=== PATIENT | female | born 1980 | race American Indian/Alaskan Native ===

== ENCOUNTER 2018-06-17 21:18 | Observation (INO) | payer BC ==
[2018-06-17] MEDS ORDERED: ZOFRAN IV ONE (21:37)
[2018-06-17] MEDS ORDERED: NACL 0.9% 1000 ML 1,000 ML IV ONE (21:37)
--- NOTE | 2018-06-17 21:39 | Emergency Department Report ---
ED Abdominal Pain HPI - General Stated Complaint: N/V/D Time Seen by Provider: 06/17/18 21:36 Source: patient, family, EMS Mode of arrival: Stretcher Limitations: No Limitations - History of Present Illness Initial Comments: Tej is a 38-year-old female that presents emergency room with nausea and vomiting and diarrhea 7 days. Patient states 5 days ago she was seen in [facility] for the same symptoms and discharged with Zofran. Patient states her diarrhea nausea vomiting are fluctuating in intensity. Patient states today they started to worsen again. Patient states she is having severe abdominal pain. Patient states the abdominal pain is generalized and nonra diating. He states the abdominal pain is 10 out of 10. Patient states that the pain is worse with vomiting and diarrhea and eating. Patient states the pain is better with rest and staying nothing by mouth. MD Complaint: abdominal pain -: Sudden Location: diffuse Radiation: none Migration to: no migration Severity: severe Severity scale (0 -10): 10 Quality: stabbing Consistency: constant Improves With: rest Worsens With: eating, vomiting, movement Associated Symptoms: nausea, vomiting, diarrhea. denies: fever, chills, constipation, dysuria, hematemesis, hematochezia, melena, hematuria, anorexia, syncope - Related Data LMP (females 10-50): unknown Home Medications Medication Instructions Recorded Confirmed Last Taken No Known Home Medications [No 06/17/18 06/17/18 Unknown Reported Home Medications] Allergies Allergy/AdvReac Type Severity Reaction Status Date / Time No Known Allergies Allergy Unverified 06/17/18 21:50 ED Review of Systems ROS: Stated complaint: N/V/D Other details as noted in HPI Constitutional: denies: chills, fever Eyes: denies: eye pain, eye discharge, vision change ENT: denies: ear pain, throat pain Respiratory: denies: cough, shortness of breath, wheezing Cardiovascular: denies: chest pain, palpitations Endocrine: no symptoms reported Gastrointestinal: abdominal pain, nausea, vomiting, diarrhea Genitourinary: denies: urgency, dysuria, discharge Musculoskeletal: denies: back pain, joint swelling, arthralgia Skin: denies: rash, lesions Neurological: denies: headache, weakness, paresthesias Psychiatric: denies: anxiety, depression Hematological/Lymphatic: denies: easy bleeding, easy bruising ED Past Medical Hx - Past Medical History Previous Medical History?: Yes Additional medical history: IBS. Allergic rhinitis - Surgical History Past Surgical History?: No - Family History Family history: hypertension, lung disease - Social History Smoking Status: Never Smoker Substance Use Type: None - Medications Home Medications: Home Medications Medication Instructions Recorded Confirmed Last Taken Type No Known Home Medications [No 06/17/18 06/17/18 Unknown History Reported Home Medications] ED Physical Exam - General Limitations: No Limitations General appearance: alert, in no apparent distress - Head Head exam: Present: atraumatic, normocephalic - Eye Eye exam: Present: normal appearance - ENT ENT exam: Present: mucous membranes dry - Neck Neck exam: Present: normal inspection - Respiratory Respiratory exam: Present: normal lung sounds bilaterally. Absent: respiratory distress - Cardiovascular Cardiovascular Exam: Present: regular rate, normal rhythm. Absent: systolic murmur, diastolic murmur, rubs, gallop - GI/Abdominal GI/Abdominal exam: Present: soft, tenderness (generalized abdominal tenderness), normal bowel sounds - Rectal Rectal exam: Present: deferred - Extremities Exam Extremities exam: Present: normal inspection - Back Exam Back exam: Present: normal inspection - Neurological Exam Neurological exam: Present: alert, oriented X3 - Psychiatric Psychiatric exam: Present: normal affect, normal mood - Skin Skin exam: Present: warm, dry, intact, normal color. Absent: rash ED Course Vital Signs 06/17/18 06/17/18 06/18/18 21:43 22:14 00:13 Temperature 98.1 F Pulse Rate 78 77 93 H Respiratory 19 15 16 Rate Blood Pressure 109/64 Blood Pressure 112/68 122/88 [Right] O2 Sat by Pulse 100 100 98 Oximetry 06/18/18 02:15 Temperature Pulse Rate 87 Respiratory 16 Rate Blood Pressure Blood Pressure 132/80 [Right] O2 Sat by Pulse 98 Oximetry - Reevaluation(s) Reevaluation #1: Patient is still complaining of pain. Patient will be given 1 mg Dilaudid and sent to CT. Discussed all results and plan of care with patient. 06/17/18 22:34 Reevaluation #2: Discussed all results and CT results with the patient. Patient will be given a by mouth challenge. Patient is still complaining of abdominal pain and nausea. 06/18/18 01:07 Patient vomited me immediately after by mouth intake with lukewarm water. We'll contact NAIL MACHINE OPERATOR for possible admission. 06/18/18 01:13 Discussed all results with patient. Discussed plan of care and admission with patient. Patient agrees with plan of care and admission. 06/18/18 01:27 - Consultations Consultation #1: NAIL MACHINE OPERATOR consultation for admission. Dr. Mckenzie Sneed has agreed to admit the patient to the NAIL MACHINE OPERATOR floor. 06/18/18 01:27 ED Medical Decision Making - Lab Data Result diagrams: 06/17/18 21:56 06/17/18 21:56 - Radiology Data Radiology results: report reviewed PROCEDURE: CT ABDOMEN PELVIS W CON TECHNIQUE: Enhanced axial images were obtained from the lower lung bases to the pelvis after the uneventful administration of IV contrast. HISTORY: Abdominal Pain COMPARISONS: None FINDINGS: Visualized lower thorax: No significant abnormality. Liver: Normal size and attenuation. Spleen: Normal size and attenuation. Gallbladder and biliary system: Normal. Pancreas: Normal. Adrenals: Normal. Kidneys: Normal. GI tract: Surgical changes to the stomach. No bowel obstruction. Lymph nodes and mesentery: Normal. Vasculature: Normal.. Bladder: Normal. Reproductive organs: Normal. Peritoneum: Mild to moderate amount of free fluid in the pelvis. Consider leak or ruptured ovarian cyst as possible etiology. Musculoskeletal structures: No significant abnormality. Other: None . IMPRESSION: 1. No acute changes to the abdomen. 2. Mild to moderate amount of free fluid in the pelvis. Consider leak or ruptured ovarian cyst as possible etiology. - Medical Decision Making is a 38-year-old female presents emergency room with complaints of abd ominal pain and nausea and vomiting 7 days. Patient abdominal pain and nausea vomiting intractable. Patient's CT done and shows a ruptured ovarian cyst. Patient was admitted to the [facility] service for further evaluation treatment. Prior to admission patient was given a by mouth challenge and patient unable to tolerate lukewarm water. Patient given multiple doses of pain medications and antiemetics. Patient's labs are unremarkable except for hypokalemia which is most likely secondary to nausea and vomiting. Patient given saline boluses in the ER. - Differential Diagnosis intractable n/v and abdominal pain. Ruptured ovarian cyst, gastroenteritis Critical Care Time: Yes Critical care attestation.: If time is entered above; I have spent that time in minutes in the direct care of this critically ill patient, excluding procedure time. Critical Care Time: 45 minutes ED Disposition Clinical Impression: Gastroenteritis, Ruptured ovarian cyst, Intractable abdominal pain Nausea & vomiting Qualifiers: Vomiting type: unspecified Vomiting Intractability: intractable Qualified Code(s): R11.2 - Nausea with vomiting, unspecified Abdominal pain Qualifiers: Abdominal location: generalized Qualified Code(s): R10.84 - Generalized abdominal pain Disposition: 09 OP ADMIT IP TO THIS HOSP Is pt being admited?: Yes Does the pt Need Aspirin: No Condition: Critical Time of Disposition: 01:27
[2018-06-17 22:00] LABS: Bilirubin,Urine NEG (Negative); Blood,Urine NEG (Negative); Color,Urine Yellow (Yellow); Protein,Urine <15 mg/dL mg/dL (Negative); Urobilinogen,Urine < 2.0 mg/dL (<2.0)
[2018-06-17 22:04] LABS: Basophils % (Auto) 0.5 % (0.0-1.8); Eosinophils # (Auto) 0.1 K/mm3 (0.0-0.4); Eosinophils % (Auto) 1.4 % (0.0-4.3); Hematocrit 32.5 % (30.3-42.9); Hemoglobin 10.8 gm/dl (10.1-14.3); Lymphocytes # (Auto) 2.4 K/mm3 (1.2-5.4); Lymphocytes % (Auto) 41.1 % (13.4-35.0); Mean Corpuscular HGB Conc 33 % (30-34); Mean Corpuscular Volume 88 fl (79-97); Monocytes # (Auto) 0.3 K/mm3 (0.0-0.8); Monocytes % (Auto) 5.3 % (0.0-7.3); Platelet Count 239 K/mm3 (140-440); Red Blood Count 3.68 M/mm3 (3.65-5.03); Red Cell Distribution Width 12.4 % (13.2-15.2)
[2018-06-17 22:18] LABS: Alanine Aminotransferase 8 units/L (7-56); Albumin 3.7 g/dL (3.9-5); BUN/Creatinine Ratio 10; Blood Urea Nitrogen 7 mg/dL (7-17); Calcium 8.7 mg/dL (8.4-10.2); Hemolysis Index 12
[2018-06-17 22:21] LABS: Bilirubin,Direct < 0.2 mg/dL (0-0.2)
[2018-06-17] MEDS ORDERED: DILAUDID IV ONE (22:34)
[2018-06-17] MEDS ORDERED: DILAUDID ONE (22:36)
[2018-06-18] MEDS ORDERED: DILAUDID IV ONE (00:20)
[2018-06-18] MEDS ORDERED: ZOFRAN IV ONE (00:20)
--- NOTE | 2018-06-18 00:40 | Cat Scan Report ---
PROCEDURE: CT ABDOMEN PELVIS W CON TECHNIQUE: Enhanced axial images were obtained from the lower lung bases to the pelvis after the une ventful administration of IV contrast. HISTORY: Abdominal Pain COMPARISONS: None FINDINGS: Visualized lower thorax: No significant abnormality. Liver: Normal size and attenuation. Spleen: Normal size and attenuation. Gallbladder and biliary system: Normal. Pancreas: Normal. Adrenals: Normal. Kidneys: Normal. GI tract: Surgical changes to the stomach. No bowel obstruction. Lymph nodes and mesentery: Normal. Vasculature: Normal.. Bladder: Normal. Reproductive organs: Normal. Peritoneum: Mild to moderate amount of free fluid in the pelvis. Consider leak or ruptured ovarian cy st as possible etiology. Musculoskeletal structures: No significant abnormality. Other: None . IMPRESSION: 1. No acute changes to the abdomen. 2. Mild to moderate amount of free fluid in the pelvis. Consider leak or ruptured ovarian cyst as pos sible etiology. This document is electronically signed by Mariposa Moss MD., June 18 2018 12:38:52 AM ET
[2018-06-18] MEDS ORDERED: TORADOL IV ONE (01:14)
[2018-06-18] MEDS ORDERED: NARCAN 0.4 MG/1 ML IV PRN (01:30)
[2018-06-18] MEDS ORDERED: ZOFRAN IV PRN (01:30)
[2018-06-18] MEDS ORDERED: DILAUDID IV PRN (01:35)
[2018-06-18] MEDS ORDERED: D5LR W/KCL 20 MEQ 20 MEQ/1,000 ML BAG IV SCH (02:00)
[2018-06-18] MEDS: REGLAN IV SCH ×4 (02:15→20:20)
[2018-06-18] MEDS: ZOFRAN IV PRN (06:36)
--- NOTE | 2018-06-18 08:07 | History and Physical Report ---
History of Present Illness Date of examination: 06/18/18 Date of admission: 06/18/18 01:27 Chief complaint: abdominal pain, nausea and vomiting History of present illness: Pt is a 38 year old -Citizen Of The [place] female presents with one day onset of severe abdominal pain and findings of fluid in the pelvis on CT scan suggestive of ruptures ovarian cyst. She notes that she was in her usual state of health until 6 days prior to presentation when the patient felt that she had a sinus infection and was seen at an urgent care where she received a prescription for Biaxin. 5 days prior to presentation she returned to urgent care with continued symptoms and reports being diagnosed with the flu was given "a steroid shot" and a 2 day antibiotic for flu per the patient. Throughout that time she continued to have nausea, vomiting, and diarrhea which the patient attributes to her IBS. On the evening of presentation, the patient reports eating at a restaurant and consuming guzman chops. Immediately after eating, she reports the sudden increase in her abdominal pain as well as her nausea vomiting diarrhea. She was brought to the hospital by ambulance. She did have a CT scan of the abdomen and pelvis which revealed moderate fluid in the pelvis suggestive of a ruptured ovarian cyst. The patient was diagnosed with IBS in 2008 and has not had a flareup in over 3 years but feels that this may be one of her flareups. She does not take any medicine daily for this condition. She has not seen a buttermaker continuous churn recently for this condition. She does have an MARKETING PLANNING MANAGER doctor Lupe Gonzalez indicator she saw last year for her annual examination without report of any abnormal findings. She does note that her menses over the past 6 months or become more painful albeit shorter and that she had 2 menses in the month of April. Past History Past Medical History: other (IBS ) Past Surgical History: gastric bypass (Gastric Sleeve ), RISK OFFICER/uterine surgery (tubal ligation ) Social history: no significant social history. denies: smoking, alcohol abuse, prescription drug abuse - Obstetrical History : 3 Para: 3 Medications and Allergies Allergies Allergy/AdvReac Type Severity Reaction Status Date / Time No Known Allergies Allergy Unverified 06/17/18 21:50 Home Medications Medication Instructions Recorded Confirmed Last Taken Type No Known Home Medications [No 06/17/18 06/17/18 Unknown History Reported Home Medications] Active Meds: Active Medications Hydromorphone HCl (Dilaudid) 0.25 mg IV Q3H PRN PRN Reason: Pain , Severe (7-10) Dextrose/Lactated Ringer's (D5lr) 1,000 mls @ 500 mls/hr IV DIRECT DEON Stop: 06/19/18 03:59 Potassium Cl/Dextrose/Lact Ringer's (D5lr W/Kcl 20 Meq) 20 meq in 1,000 mls @ 150 mls/hr IV DIRECT DEON Last Admin: 06/18/18 02:29 Dose: 150 mls/hr Documented by: Metoclopramide HCl (Reglan) 10 mg IV Q6H DEON Last Admin: 06/18/18 02:15 Dose: 10 mg Documented by: Naloxone HCl (Narcan 0.4 Mg/1 Ml) 0.1 mg IV Q2MIN PRN PRN Reason: Res Rate </= 8 or 02 SAT < 92% Ondansetron HCl (Zofran) 4 mg IV Q6H PRN PRN Reason: N/V unrelieved by Reglan Last Admin: 06/18/18 06:36 Dose: 4 mg Documented by: Review of Systems All systems: negative Gastrointestinal: nausea, vomiting, diarrhea - Vital Signs Vital signs: Vital Signs Temp Pulse Resp BP Pulse Ox 98.1 F 78 19 109/64 100 06/17/18 21:43 06/17/18 21:43 06/17/18 21:43 06/17/18 21:43 06/17/18 21:43 Temp Pulse Resp BP Pulse Ox 97.6 F 82 18 105/73 99 06/18/18 03:33 06/18/18 03:33 06/18/18 03:33 06/18/18 03:33 06/18/18 03:33 - Physical Exam Breasts: Positive: deferred Cardiovascular: Regular rate Lungs: Positive: Clear to auscultation Abdomen: Positive: soft, abnormal bowel sounds (hyperactive bowel sounds ) Extremities: Positive: normal Results Result Diagrams: 06/17/18 21:56 06/17/18 21:56 Abnormal lab results 06/17/18 06/17/18 06/17/18 Range/Units 21:49 21:56 21:56 RDW 12.4 L (13.2-15.2) % Lymph % (Auto) 41.1 H (13.4-35.0) % Potassium 3.5 L (3.6-5.0) mmol/L Albumin 3.7 L (3.9-5) g/dL Urine pH 8.0 H (5.0-7.0) All other labs normal. Assessment and Plan A: Abdominal Pain Suspected ruptured ovarian cyst Nausea/Vomiting/Diarrhea with history of IBS Hypokalemia P: Admit for observation IV hydration, antiemetics and pain medication Replete potassium GI consult Advance diet as tolerated Continue to monitor clinical status
[2018-06-18] MEDS: PERCOCET 5/325 PO PRN ×3 (09:57→20:18)
[2018-06-18] MEDS: D5LR 1,000 ML IV SCH (10:00)
--- NOTE | 2018-06-18 15:04 | Gastroenterology Consultation ---
History of Present Illness - Reason for Consult Consult date: 06/18/18 Requesting physician: TABITHA SILVA - History of Present Illness Patient here for acute abd pain, N/V and diarrhea, but she had a ruptured ovarian cyst that she feels is the source of those problems She has a history of GI symptoms; she had EGD last year that was negative and basic bloodwork as well. She reports years of intermittent abdominal pain that is cramping, lower abd, duration days then will go away, worse with constipation and better with BM. She reports not having taken linzess or amitiza meds updated and reconciled Past History Past Medical History: other (ovarian cyst) Past Surgical History: No surgical history Social history: no significant social history. denies: smoking, alcohol abuse, prescription drug abuse Family history: no significant family history Medications and Allergies Allergies Allergy/AdvReac Type Severity Reaction Status Date / Time No Known Allergies Allergy Unverified 06/17/18 21:50 Home Medications Medication Instructions Recorded Confirmed Last Taken Type No Known Home Medications [No 06/17/18 06/17/18 Unknown History Reported Home Medications] Active Meds: Active Medications Hydromorphone HCl (Dilaudid) 0.25 mg IV Q3H PRN PRN Reason: Pain , Severe (7-10) Dextrose/Lactated Ringer's (D5lr) 1,000 mls @ 500 mls/hr IV DIRECT DEON Stop: 06/19/18 03:59 Last Admin: 06/18/18 10:00 Dose: 500 mls/hr Documented by: Potassium Cl/Dextrose/Lact Ringer's (D5lr W/Kcl 20 Meq) 20 meq in 1,000 mls @ 150 mls/hr IV DIRECT DEON Last Admin: 06/18/18 02:29 Dose: 150 mls/hr Documented by: Metoclopramide HCl (Reglan) 10 mg IV Q6H DEON Last Admin: 06/18/18 14:24 Dose: 10 mg Documented by: Naloxone HCl (Narcan 0.4 Mg/1 Ml) 0.1 mg IV Q2MIN PRN PRN Reason: Res Rate </= 8 or 02 SAT < 92% Ondansetron HCl (Zofran) 4 mg IV Q6H PRN PRN Reason: N/V unrelieved by Reglan Last Admin: 06/18/18 06:36 Dose: 4 mg Documented by: Oxycodone/Acetaminophen (Percocet 5/325) 2 tab PO Q4H PRN PRN Reason: Pain, Moderate (4-6) Last Admin: 06/18/18 14:23 Dose: 2 tab Documented by: Review of Systems - Review of Systems All systems: negative (as mentioned above in the HPI) Exam - Constitutional Vital Signs: Temp Pulse Resp BP Pulse Ox 97.4 F L 87 18 105/63 96 06/18/18 12:03 06/18/18 12:03 06/18/18 12:03 06/18/18 12:03 06/18/18 12:03 General appearance: no acute distress - EENT Eyes: EOM intact ENT: hearing intact - Neck Neck: supple - Respiratory Respiratory: bilateral: CTA - Cardiovascular Rhythm: regular - Gastrointestinal General gastrointestinal: Present: soft, tender - Integumentary Integumentary: Present: warm, dry - Musculoskeletal Musculoskeletal: normal - Neurologic Neurological: alert and oriented x3 - Psychiatric Psychiatric: appropriate mood/affect - Labs CBC & Chem 7: 06/17/18 21:56 06/17/18 21:56 Lab Results: Laboratory Results - last 24 hr 06/17/18 06/17/18 06/17/18 21:49 21:56 21:56 WBC 5.8 RBC 3.68 Hgb 10.8 Hct 32.5 MCV 88 MCH 29 MCHC 33 RDW 12.4 L Plt Count 239 Lymph % (Auto) 41.1 H [place] % (Auto) 5.3 Eos % (Auto) 1.4 Baso % (Auto) 0.5 Lymph # 2.4 [place] # 0.3 Eos # 0.1 Baso # 0.0 Seg Neutrophils % 51.7 Seg Neutrophils # 3.0 Sodium 137 Potassium 3.5 L Chloride 101.1 Carbon Dioxide 27 Anion Gap 12 BUN 7 Creatinine 0.7 Estimated GFR > 60 BUN/Creatinine Ratio 10 Glucose 89 Calcium 8.7 Total Bilirubin 0.20 Direct Bilirubin < 0.2 Indirect Bilirubin 0.0 AST 13 ALT 8 Alkaline Phosphatase 55 Total Protein 6.8 Albumin 3.7 L Albumin/Globulin Ratio 1.2 Lipase 39 HCG, Qual Urine Color Yellow Urine Turbidity Clear Urine pH 8.0 H Ur Specific [place] 1.008 Urine Protein <15 mg/dl Urine Glucose (UA) Neg Urine Ketones Neg Urine Blood Neg Urine Nitrite Neg Urine Bilirubin Neg Urine Urobilinogen < 2.0 Ur Leukocyte Esterase Neg Urine WBC (Auto) 1.0 Urine RBC (Auto) 1.0 U Epithel Cells (Auto) 4.0 06/17/18 21:56 WBC RBC Hgb Hct MCV MCH MCHC RDW Plt Count Lymph % (Auto) [place] % (Auto) Eos % (Auto) Baso % (Auto) Lymph # [place] # Eos # Baso # Seg Neutrophils % Seg Neutrophils # Sodium Potassium Chloride Carbon Dioxide Anion Gap BUN Creatinine Estimated GFR BUN/Creatinine Ratio Glucose Calcium Total Bilirubin Direct Bilirubin Indirect Bilirubin AST ALT Alkaline Phosphatase Total Protein Albumin Albumin/Globulin Ratio Lipase HCG, Qual Negative Urine Color Urine Turbidity Urine pH Ur Specific [place] Urine Protein Urine Glucose (UA) Urine Ketones Urine Blood Urine Nitrite Urine Bilirubin Urine Urobilinogen Ur Leukocyte Esterase Urine WBC (Auto) Urine RBC (Auto) U Epithel Cells (Auto) Assessment and Plan Patient likely with IBS-C based upon history, reviewed with her FODMAP diet trial and lifestyle modification; if those changes do not improve symptoms then she will follow up with me in the office and I will Rx medication to help with terminal operations manager management - Patient Problems (1) Constipation Current Visit: Yes Status: Acute (2) Abdominal pain Current Visit: Yes Status: Acute Qualifiers: Abdominal location: generalized Qualified Code(s): R10.84 - Generalized abdominal pain (3) Nausea & vomiting Current Visit: Yes Status: Acute Qualifiers: Vomiting type: unspecified Vomiting Intractability: intractable Qualified Code(s): R11.2 - Nausea with vomiting, unspecified
[2018-06-19] MEDS: D5LR 1,000 ML IV SCH (00:55)
[2018-06-19] MEDS: REGLAN IV SCH (02:39)
[2018-06-19] MEDS: PERCOCET 5/325 PO PRN (10:35)
[2018-06-19] MEDS: ZOFRAN IV PRN (10:37)
--- NOTE | 2018-06-19 12:36 | Progress Note ---
Assessment and Plan A/P HD #1 ruptrured ovarian cyst , IBS appreciate gi will see on outpatietn basis. advance diet as tolerating food will be discharged home continue pain meds Subjective - Subjective Date of service: 06/19/18 Principal diagnosis: ruptured ovarian cyst , IBS Patient reports: appetite normal, voiding normally, pain well controlled, flatus, ambulating normally Objective - Vital Signs Latest vital signs: Vital Signs Temp Pulse Resp Resp BP BP Pulse Ox 06/19/18 10:35 20 06/19/18 08:00 19 06/19/18 07:30 98.1 F 75 18 108/68 100 06/19/18 04:25 98.5 F 74 20 113/65 99 06/19/18 00:08 97.6 F 70 20 105/72 100 06/18/18 20:32 98.5 F 71 20 125/85 98 06/18/18 20:18 16 06/18/18 15:22 97.9 F 81 18 97/59 96 Intake and Output 06/18/18 06/19/18 06/19/18 23:59 07:59 15:59 Intake Total 120 240 Output Total 250 Balance -130 240 Intake: Oral 240 Intake, Free Water 120 Output: Urine 250 Void 250 Other: Total, Intake Amount 240 Total, Output Amount 250 Voiding Method Toilet # Voids Void 1 - Exam Breasts: Present: normal Cardiovascular: Present: Regular rate, Normal S1 Lungs: Present: Clear to auscultation, Normal air movement Abdomen: Present: normal appearance, soft, normal bowel sounds. Absent: distention, tenderness, guarding Uterus: Present: normal, firm. Absent: bogginess, tenderness Extremities: Present: normal Deep Tendon Reflex Grade: Normal +2 Incision: Present: normal
--- NOTE | 2018-06-19 12:40 | Discharge Summary ---
Providers - Providers Date of Admission: 06/18/18 01:27 Date of discharge: 06/19/18 Attending physician: TABITHA SNEED 06/18/18 08:23 Consult to Physician [CONS] Routine Comment: Consulting Provider: HAYLIE GARCIA Physician Instructions: Reason For Exam: nausea, vom, diarrhea; IBS Primary care physician: INDUSTRIAL PRODUCTION MANAGER Hospitalization Reason for admission: other (ruptured ovarian cyst and IBS) Hospital course: patient was admitted dx with IBS and ruptured ovarian cyst. Pain controlled with meds. Tolerating diet. d/c home with F/u with GI next week and OB next week with Dr. Sneed Condition at discharge: Good Disposition: DC-01 TO HOME OR SELFCARE Plan - Discharge Medications Prescriptions: oxyCODONE /ACETAMINOPHEN [Percocet 5/325] 1 tab PO Q6HR PRN #20 tablet PRN Reason: Pain Ondansetron (Nf) [Zofran TAB] 8 mg PO Q8HR PRN #20 tablet PRN Reason: Nausea - Provider Discharge Summary Additional instructions: [] Smoking cessation referral if applicable(refer to patient education folder for contact #) [] Refer to [facility]'s [facility] Booklet Call your doctor immediately for: * Fever > 100.5 * Heavy vaginal bleeding ( >1 pad per hour) * Severe persistent headache * Shortness of breath * Reddened, hot, painful area to leg or breast * Drainage or odor from incision. * Keep incision clean and dry at all times and follow doctor's instructions regarding bathing/showering - Follow up plan
--- NOTE | 2018-06-19 14:53 | Gastroenterology Progress Note ---
<HAYLIE GARCIA - Last Filed: 06/19/18 14:55> Assessment and Plan 1.abdominal pain -improving -likely 2/2 ruptured ovarian cyst 2.N/V 3.alternating bowel habits (diarrhea now resolved; hx of constipation) -patient reports years of intermittent abdominal cramping/pain, with constipation -EGD last year and basic bloodwork negative -etiology-likely IBS -clinically, patient is stable and reports feeling better with abd pain improv ing. No N/V or diarrhea. Tolerating liquids and requesting diet be advanced. -okay to advance diet at tolerated -FODMAP diet and lifestyle modification for IBS discussed with patient -continue supportive care -patient okay to be d/c per GI standpoint with f/u in clinic for further management of IBS -will sign off, please call if needed Subjective Date of service: 06/19/18 Principal diagnosis: ruptured ovarian cyst , IBS Interval history: Patient resting in bed w/o acute distress. Reports abd pain improving. No N/V or diarrhea. Tolerating liquids and requesting diet to be advanced. Objective - Constitutional Vitals: Temp Pulse Resp BP Pulse Ox 98.1 F 80 18 113/69 96 06/19/18 12:00 06/19/18 12:00 06/19/18 12:00 06/19/18 12:00 06/19/18 12:00 General appearance: no acute distress - Respiratory Respiratory: bilateral: CTA - Cardiovascular Rhythm: regular - Gastrointestinal General gastrointestinal: Present: soft, non-tender, non-distended, normal bowel sounds - Neurologic Neurological: alert and oriented x3 - Labs CBC & Chem 7: 06/17/18 21:56 06/17/18 21:56 <MARINA MOTT - Last Filed: 06/19/18 20:28> Assessment and Plan Patient seen and examined. I have reviewed the advanced practitioner's evaluation, assessment, and plan, and agree with them. I note the following additions: Patient reports mild improvement in symptoms today, still TTP on exam; plan FODMAP diet and continue supportive care and ok to discharge from GI standpoint with outpatient follow up in the office. - Patient Problems (1) Constipation Status: Acute (2) Abdominal pain Status: Acute Qualifiers: Abdominal location: generalized Qualified Code(s): R10.84 - Generalized abdominal pain (3) Nausea & vomiting Status: Acute Qualifiers: Vomiting type: unspecified Vomiting Intractability: intractable Qualified Code(s): R11.2 - Nausea with vomiting, unspecified Objective - Constitutional Vitals: Temp Pulse Resp BP Pulse Ox 98.1 F 88 18 121/78 100 06/19/18 17:01 06/19/18 17:01 06/19/18 17:01 06/19/18 17:01 06/19/18 17:01 - Labs CBC & Chem 7: 06/17/18 21:56 06/17/18 21:56
[2018-06-19 17:04] VITALS: BP 121/78
== END 2018-06-19 18:20 | disposition home or self-care (01) ==
LOC: ED 21:18 → OB 06-18 01:27 → INTOOBSV 06-18 01:27
PROVIDERS: ADMIT Obstetrics & Gynecology; ATTEND Obstetrics & Gynecology
DX: N83.299 Other ovarian cyst, unspecified side (principal); K58.9 Irritable bowel syndrome, unspecified; E87.6 Hypokalemia; R11.2 Nausea with vomiting, unspecified; Z79.899 Other long term (current) drug therapy; Z98.890 Other specified postprocedural states
CPT/HCPCS: 36415; 74177; 80048; 80076; 81001; 83690; 84703; 85025; 96361; 96365; 96366; 96375; 96376; 99291; G0378; J1170; J1885; J2405; J2765; J7030; J7120; J7121; Q9967